=== PATIENT | female | born 1945 | race Caucasian/White ===

== ENCOUNTER 2024-11-05 21:45 | Emergency (ER) | payer OTHER ==
[2024-11-05 21:55] VITALS: BP 168/61; PULSE 73; RESP 20; TEMP 97.5; BMI 31.1
[2024-11-05] MEDS ORDERED: ACETAMINOPHEN 325 MG TABLET (FP) ONE (22:45)
[2024-11-05] MEDS ORDERED: amLODIPine BESYLATE 2.5 MG TABLET (FP) ONE (22:45)
[2024-11-05] MEDS ORDERED: LIDOCAINE 4% PATCH TP ONE (22:46)
[2024-11-05] MEDS ORDERED: IBUPROFEN 400 MG TABLET (FP) PO ONE (22:46)
[2024-11-05] MEDS: amLODIPine BESYLATE 2.5 MG TABLET (FP) PO ONE (23:00)
[2024-11-05] MEDS: ACETAMINOPHEN 500 MG TABLET (FP) PO ONE (23:01)
[2024-11-05] MEDS: IBUPROFEN 400 MG TABLET (FP) PO ONE (23:01)
[2024-11-05] MEDS: LIDOCAINE 4% PATCH TP ONE (23:02)
[2024-11-06] MEDS ORDERED: LIDOCAINE PATCH REMOVAL MC SCH (11:00)
== END 2024-11-06 01:12 | disposition home or self-care (01) ==
LOC: JER 21:45
DX: S20.213A Contusion of bilateral front wall of thorax, initial encounter (principal); W01.0XXA Fall on same level from slipping, tripping and stumbling without subsequent striking against object, initial encounter; Y92.480 Sidewalk as the place of occurrence of the external cause
CPT/HCPCS: 71111-TC-FY; 99283-25